=== PATIENT | female | born 1970 | race Caucasian/White ===

== ENCOUNTER 2016-06-18 13:44 | Emergency (ER) | payer SELFPAY ==
[2016-06-18] MEDS ORDERED: TOPROL XL PO ONE (13:53)
[2016-06-18 13:54] VITALS: BMI 27.3
--- NOTE | 2016-06-18 13:56 | DR.GENAD ---
HPI - HPI Comment HPI Comment: PATIENT WITH HISTORY OF SVT ON TOPROL XL RAN OUT OF MED 2 DAYS AGO. TODAY, RAPID HEART RATED STARTED. EMS GAVE ADENOCIN TIMES 2. PATIENT IS BETTER . HR 120 CURRENTLY. - Complaint/Symptoms Chief Complaint Doctors Comments: RAPID HEART RATE. - Nurses notes reviewed Nurses Notes Review: Yes - Source History Provided: Patient, EMS - Mode of Arrival Mode of Arrival: Stretcher - Timing Came on: Suddenly - Duration Duration: Since Onset Duration: Minutes - Severity Severity: Moderate PMH - PMH Past Medical History: GERD Past Surgical History: Yes Surgical History: Bowel Resection, Cholecystectomy, Ortho Surgery - Family History Family Medical History: [place], Hypertension - Social History Do you use any recreational Drugs:: No ROS - Review of Systems Constitutional: No Symptoms Reported, Weakness, Fatigue Eyes: No Symptoms Reported. negative: Eye Pain, Discharge ENTM: No Symptoms Reported. negative: Ear Pain, Nose Discharge, Nose Congestion , Throat Pain Respiratoy: No Symptoms Reported. negative: Productive Cough, Non-Productive Cough, Short of Breath, Wheezing, Hemoptysis Cardiovascular: Palpitations Gastrointestinal/Abdominal: No Symptoms Reported Genitourinary: No Symptoms Reported Neurological: Dizziness Musculoskeletal: No Symptoms Reported Integumentary: No Symptoms Reported Hematologic/Lymphatic: No Symptoms Reported Endocrine: No Symptoms Reported All Other Systems: Reviewed and Negative PE - Vital Signs Vitals: Temperature 98 F Pulse Rate [Right Brachial] 100 Pulse Rate 118 Respiratory Rate 16 Blood Pressure [Right Arm] 160/79 Blood Pressure [Left Arm] 134/75 Blood Pressure 163/84 O2 Sat by Pulse Oximetry 97 - General Limitations: No Limitations General Appearance: In No Apparent Distress - Head Head Exam: Normal Inspection - Eyes Eye exam: Normal Appearance - ENT ENT Exam: Normal External Ear Exam External Ear Exam: Normal External Inspection TM/Canal Exam: Bilateral Normal Nose Exam: Normal Nose Exam Mouth Exam: Normal Inspection Throat Exam: Normal Inspection - Neck Neck Exam: Trachea Midline - Chest Chest Inspection: Symmetric Chest Wall Rise - Respiratory Respiratory Exam: Normal Lung Sounds Bilat Respiratory Exam: Bilateral Clear to Auscultation - Cardiovascular Cardiovascular Exam: Normal Rhythm, Tachycardia, Normal Heart Sounds - Abdominal Exam Abdominal Exam: Normal Bowel Sounds, Soft. negative: Tenderness - Extremities Extremities Exam: Normal Inspection - Back Back Exam: Normal Inspection - Neurologic Neurological Exam: Alert, Oriented X3 - Psychiatric Psychiatric Exam: Anxious - Skin Skin Exam: Normal Color MDM - Differential Diagnosis Differential Diagnosis: SVT, VT, Course - Treatment Treatment: SEE ORDERS - Education/Counseling Education/Counseling: Patient, Education Educated On: Treatment, Diagnosis, Needs for Follow Up ROR - Labs Reviewed Laboratory Results Reviewed?: Yes Result Diagrams: 06/18/16 14:16 06/18/16 14:16 Laboratory: WBC 7.1 X10^3/uL (3.6-10.0) 06/18/16 14:16 RBC 4.18 X10^6/uL (3.5-5.4) 06/18/16 14:16 Hgb 10.6 g/dL (12.0-16.0) L 06/18/16 14:16 Hct 33.7 % (36.0-47.0) L 06/18/16 14:16 MCV 80.6 fL (80.0-100.0) 06/18/16 14:16 MCH 25.3 pg (27.0-34.0) L 06/18/16 14:16 MCHC 31.4 g/dL (33.0-35.0) L 06/18/16 14:16 RDW 19.2 % (11.6-16.5) H 06/18/16 14:16 Plt Count 271 X10^3/uL (150.0-450.0) 06/18/16 14:16 Plt Count Comment Adequate (ADEQUATE) 06/18/16 14:16 MPV 8.1 fL (7.4-11.0) 06/18/16 14:16 Neut % 62.2 % (42.0-75.0) 06/18/16 14:16 Lymph % 26.9 % (21.0-51.0) 06/18/16 14:16 [place] % 9.2 % (0.0-13.0) 06/18/16 14:16 Eos % 0.6 % (0.9-2.9) L 06/18/16 14:16 Baso % 1.1 % (0.2-1.0) H 06/18/16 14:16 Neut # 4.4 x10^3/uL (2.2-4.8) 06/18/16 14:16 Lymph # 1.9 X10^3/uL (1.3-2.9) 06/18/16 14:16 [place] # 0.7 x10^3/uL (0.3-0.8) 06/18/16 14:16 Eos # 0.0 x10^3/uL (0.0-0.2) 06/18/16 14:16 Baso # 0.1 X10^3/uL (0.0-0.1) 06/18/16 14:16 Absolute Nucleated RBC 0.0 /100WBC 06/18/16 14:16 Plt Morphology Comment Normal (NORMAL) 06/18/16 14:16 RBC Morphology Abnormal (NORMAL) A 06/18/16 14:16 Hypochromasia Slight A 06/18/16 14:16 Ovalocytes Present 06/18/16 14:16 Sodium 143 mmol/L (136-145) 06/18/16 14:16 Corrected Sodium TNP 06/18/16 14:16 Potassium 3.6 mmol/L (3.5-5.1) 06/18/16 14:16 Chloride 110 mmol/L (98-107) H 06/18/16 14:16 Carbon Dioxide 20.4 mmol/L (21-32) L 06/18/16 14:16 BUN 10 mg/dL (7-18) 06/18/16 14:16 Creatinine 1.08 mg/dL (0.55-1.02) H 06/18/16 14:16 Est GFR (MDRD) Af Amer > 60 (>60) 06/18/16 14:16 Est GFR (MDRD) Non-Af 59 (>60) 06/18/16 14:16 Glucose 106 mg/dL (65-99) H 06/18/16 14:16 Calcium 8.3 mg/dL (8.5-10.1) L 06/18/16 14:16 Corrected Calcium TNP 06/18/16 14:16 Total Bilirubin 0.10 mg/dL (0.2-1.0) L 06/18/16 14:16 AST 32 Units/L (15-37) 06/18/16 14:16 ALT 32 Units/L (12-78) 06/18/16 14:16 Alkaline Phosphatase 92 Units/L (46-116) 06/18/16 14:16 Creatine Kinase 206 Units/L (26-192) H 06/18/16 14:16 CK-MB (CK-2) 2.2 ng/mL (0-4.0) 06/18/16 14:16 CK/CKMB % Calc 1.1 % (<4) 06/18/16 14:16 Troponin I < 0.02 ng/mL (0-1.5) 06/18/16 14:16 Total Protein 7.3 g/dL (6.4-8.2) 06/18/16 14:16 Albumin 3.7 g/dL (3.4-5.0) 06/18/16 14:16 Globulin 3.6 g/dL (2.5-4.5) 06/18/16 14:16 Albumin/Globulin Ratio 1.0 Ratio (1.1-2.1) L 06/18/16 14:16 - EKG Rhythm: ST (EKG NOTED) - Diagnosis Discharge Problem: SVT (supraventricular tachycardia) - Discharge Plan Disposition: 01 HOME, SELF-CARE Condition: Stable Prescriptions: Metoprolol Succinate Ext Rel [Toprol Xl] 50 mg PO DAILY #30 tabsr - Follow ups/Referrals Follow ups/Referrals: [facility],None [Primary Care Provider] - 3 days DONNA PONCE [STAFF PHYSICIAN] - 3 days - Instructions Instructions: Paroxysmal Supraventricular Tachycardia Additional Instructions: RETURN TO ED IF WORSE.
[2016-06-18] MEDS ORDERED: TOPROL XL PO SCH (14:00)
[2016-06-18 14:24] VITALS: BP 160/79
[2016-06-18 14:25] LABS: BASOPHILS # (AUTO) 0.1 X10^3/uL (0.0-0.1); BASOPHILS % (AUTO) 1.1 % (0.2-1.0); EOSINOPHILS % (AUTO) 0.6 % (0.9-2.9); HEMATOCRIT 33.7 % (36.0-47.0); HEMOGLOBIN 10.6 g/dL (12.0-16.0); LYMPHOCYTES # (AUTO) 1.9 X10^3/uL (1.3-2.9); LYMPHOCYTES % (AUTO) 26.9 % (21.0-51.0); MEAN CORPUSCULAR HEMOGLOBIN 25.3 pg (27.0-34.0); MEAN CORPUSCULAR HGB CONC 31.4 g/dL (33.0-35.0); MEAN CORPUSCULAR VOLUME 80.6 fL (80.0-100.0); MEAN PLATELET VOLUME 8.1 fL (7.4-11.0); MONOCYTES # (AUTO) 0.7 x10^3/uL (0.3-0.8); MONOCYTES % (AUTO) 9.2 % (0.0-13.0); NEUTROPHILS # (AUTO) 4.4 x10^3/uL (2.2-4.8); NEUTROPHILS % (AUTO) 62.2 % (42.0-75.0); PLATELET COUNT 271 X10^3/uL (150.0-450.0); RED BLOOD COUNT 4.18 X10^6/uL (3.5-5.4); RED CELL DISTRIBUTION WIDTH 19.2 % (11.6-16.5); WHITE BLOOD COUNT 7.1 X10^3/uL (3.6-10.0)
[2016-06-18 14:39] LABS: BLOOD UREA NITROGEN 10 mg/dL (7-18); CALCIUM 8.3 mg/dL (8.5-10.1); CARBON DIOXIDE 20.4 mmol/L (21-32); CHLORIDE 110 mmol/L (98-107); CREATININE 1.08 mg/dL (0.55-1.02); GLUCOSE 106 mg/dL (65-99); SODIUM 143 mmol/L (136-145); TROPONIN I < 0.02 ng/mL (0-1.5); eGFR BLACK RACES > 60 (>60); eGFR NON BLACK RACES 59 (>60)
[2016-06-18 14:40] LABS: HYPOCHROMASIA SLIGHT; PLATELET MORPHOLOGY COMMENT NORMAL (NORMAL)
[2016-06-18 14:41] LABS: OVALOCYTES PRESENT
[2016-06-18 14:47] LABS: ALANINE AMINOTRANSFERASE 32 Units/L (12-78); ALBUMIN 3.7 g/dL (3.4-5.0); ALKALINE PHOSPHATASE 92 Units/L (46-116); ASPARTATE AMINO TRANSFERASE 32 Units/L (15-37); CKMB % 1.1 % (<4); CREATINE KINASE 206 Units/L (26-192); CREATINE KINASE MB 2.2 ng/mL (0-4.0); TOTAL PROTEIN 7.3 g/dL (6.4-8.2)
== END 2016-06-18 15:08 | disposition home or self-care (01) ==
LOC: ER 13:45
DX: I47.1 Supraventricular tachycardia (principal)
CPT/HCPCS: 36415; 80053; 82550; 82553; 84484; 85025; 93005; 93010; 96365; 99283; A4222

== ENCOUNTER → 2016-09-04 | Outpatient (CLI) | payer OTHER ==
--- NOTE | 2016-09-04 10:36 | RAD ---
HISTORY: Staph infection of the heel Study: Three views left Comparison: November 27, 2014 Findings: there is an old fracture of the posterior calcaneus with callus formation. There is no lytic bone er osion or destruction demonstrated. There is no acute fracture. There are minimal osteophytes about t he 1st metatarsal phalangeal joint.No acute cortical disruption or dislocation can be identified. N o significant soft tissue swelling or injury can be seen. IMPRESSION: 1. Old posterior calcaneal fracture, no evidence for acute disease or osteomyelitis. Reported By:
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
== END | disposition home or self-care (01) ==
LOC: RAD 09:53
PROVIDERS: ATTEND Internal Medicine
DX: Z02.71 Encounter for disability determination (principal); Z98.890 Other specified postprocedural states
CPT/HCPCS: 73630

== ENCOUNTER 2023-11-29 08:23 | Observation (INO) ==
--- NOTE | 2023-11-29 08:48 | DR.GENAD ---
HPI Time Seen Time Seen by Provider: 11/29/23 08:36 HPI Comment HPI Comment: Abdominal pian .According to pt she has experienced pain in her belly starting 2 days ago gradual in onset and has slowly worsened to being constant .Pain is located in the upper belly moderate intensity no radiation .Associated with nausea vomiting but no changes in bowel habits .Last bowel movement yesterday.Has no diarrhea.Pain doesnot improve with bowel movement .Pt has not eaten anything unusual or different .Has not changed her medication except does take tylenol with codeine at least 4 x per day .hx of bariatric procedure .Did take GI cocktail did not help with pain COVID-19 Coronavirus risk:travel/contact w/high risk person: No Has patient experienced Coronavirus symptoms: No Nurses notes reviewed Nurses Notes Review: Yes Source History Provided: Patient Mode of Arrival Mode of Arrival: Ambulatory PM PM Past Medical History: GERD and SVT Past Surgical History: Yes Surgical History: Bowel Resection, Cholecystectomy and Ortho Surgery Family History Family Medical History: [place] and Hypertension Social History Do you use any recreational Drugs:: No Travel Risk Coronavirus risk:travel/contact w/high risk person: No Has patient experienced Coronavirus symptoms: No ROS Review of Systems Constitutional: Malaise and Fatigue Eyes: No Symptoms Reported ENTM: No Symptoms Reported Respiratoy: No Symptoms Reported Cardiovascular: No Symptoms Reported Gastrointestinal/Abdominal: See HPI Genitourinary: No Symptoms Reported Neurological: No Symptoms Reported Musculoskeletal: Other (chronic back pain) Integumentary: No Symptoms Reported Hematologic/Lymphatic: No Symptoms Reported PE Vital Signs Vitals: Vital Signs Temperature 97.7 F Pulse Rate 98 Respiratory Rate 18 Respiratory Rate 18 Blood Pressure 175/90 O2 Sat by Pulse Oximetry 99 General Limitations: No Limitations General Appearance: Alert and In No Apparent Distress Head Head Exam: Normal Inspection, Atraumatic and Normocephalic Eyes Eye exam: Normal Appearance and PERRL ENT ENT Exam: Mucous Membranes Dry and Other (pos pallor ) External Ear Exam: Normal External Inspection TM/Canal Exam: Bilateral: Normal Neck Neck Exam: Normal Inspection Chest Chest Inspection: Normal Inspection and Symmetric Chest Wall Rise Respiratory Respiratory Exam: Normal Lung Sounds Bilat Respiratory Exam: Bilateral: Clear to Auscultation Abdominal Exam Abdominal Exam: Soft, Tenderness and Incision Abdominal Tenderness: Diffuse and Moderate Neurologic Neurological Exam: Alert Skin Skin Exam: Normal Color MDM Differential Diagnosis Differential Diagnosis: abdominal pain COURSE Treatment Treatment: cbc,cmp,lipase,IV fluids ,zofran CT abdomen and pelvis with contrast ROR Labs Reviewed Laboratory Results Reviewed?: Yes 11/29/23 08:58 11/29/23 08:58 Laboratory: WBC 5.3 X10^3/uL (3.6-10.0) 11/29/23 08:58 RBC 4.22 X10^6/uL (3.5-5.4) 11/29/23 08:58 Hgb 11.4 g/dL (12.0-16.0) L 11/29/23 08:58 Hct 35.8 % (36.0-47.0) L 11/29/23 08:58 MCV 84.7 fL (80.0-100.0) 11/29/23 08:58 MCH 26.9 pg (27.0-34.0) L 11/29/23 08:58 MCHC 31.8 g/dL (33.0-35.0) L 11/29/23 08:58 RDW 21.4 % (11.6-16.5) H 11/29/23 08:58 Plt Count 237 X10^3/uL (150.0-450.0) 11/29/23 08:58 Plt Count Comment Adequate (ADEQUATE) 11/29/23 08:58 MPV 7.8 fL (7.4-11.0) 11/29/23 08:58 Neut % (Auto) 76.0 % (42.0-75.0) H 11/29/23 08:58 Lymph % (Auto) 16.1 % (21.0-51.0) L 11/29/23 08:58 [place] % (Auto) 6.6 % (0.0-13.0) 11/29/23 08:58 Eos % (Auto) 0.7 % (0.9-2.9) L 11/29/23 08:58 Baso % (Auto) 0.6 % (0.2-1.0) 11/29/23 08:58 Neut # (Auto) 4.0 x10^3/uL (2.2-4.8) 11/29/23 08:58 Lymph # (Auto) 0.8 X10^3/uL (1.3-2.9) L 11/29/23 08:58 [place] # (Auto) 0.3 x10^3/uL (0.3-0.8) 11/29/23 08:58 Eos # (Auto) 0.0 x10^3/uL (0.0-0.2) 11/29/23 08:58 Baso # (Auto) 0.0 X10^3/uL (0.0-0.1) 11/29/23 08:58 Absolute Nucleated RBC 0.0 /100WBC 11/29/23 08:58 Plt Morphology Comment Normal (NORMAL) 11/29/23 08:58 RBC Morphology Abnormal (NORMAL) A 11/29/23 08:58 Hypochromasia 1+ A 11/29/23 08:58 Anisocytosis 1+ A 11/29/23 08:58 Sodium 137 mmol/L (136-145) 11/29/23 08:58 Corrected Sodium TNP 11/29/23 08:58 Potassium 3.9 mmol/L (3.5-5.1) 11/29/23 08:58 Chloride 100 mmol/L (98-107) 11/29/23 08:58 Carbon Dioxide 29.3 mmol/L (21-32) 11/29/23 08:58 BUN 18 mg/dL (7-18) 11/29/23 08:58 Creatinine 0.63 mg/dL (0.55-1.02) 11/29/23 08:58 Est GFR (MDRD) Af Amer > 60 (>60) 11/29/23 08:58 Est GFR (MDRD) Non-Af > 60 (>60) 11/29/23 08:58 Glucose 107 mg/dL (65-99) H 11/29/23 08:58 Calcium 9.5 mg/dL (8.5-10.1) 11/29/23 08:58 Corrected Calcium TNP 11/29/23 08:58 Total Bilirubin 0.30 mg/dL (0.2-1.0) 11/29/23 08:58 AST 27 Units/L (15-37) 11/29/23 08:58 ALT 28 Units/L (12-78) 11/29/23 08:58 Alkaline Phosphatase 121 Units/L (46-116) H 11/29/23 08:58 Total Protein 8.0 g/dL (6.4-8.2) 11/29/23 08:58 Albumin 4.2 g/dL (3.4-5.0) 11/29/23 08:58 Globulin 3.8 g/dL (2.5-4.5) 11/29/23 08:58 Albumin/Globulin Ratio 1.1 Ratio (1.1-2.1) 11/29/23 08:58 Lipase 121 Units/L (16-77) H 11/29/23 08:58 SARS-CoV-2 (PCR) Negative (NEGATIVE) 11/29/23 08:39 Influenza Type A (PCR) Negative (NEGATIVE) 11/29/23 08:39 Influenza Type B (PCR) Negative (NEGATIVE) 11/29/23 08:39 RSV (PCR) Negative (NEGATIVE) 11/29/23 08:39 S. pyogenes (TEM-PCR) Not detected (NOT DETECT) 11/29/23 08:39 Other Results Comments: elevated lipase and ct showing small bowel obstruction .Spoke with Dr Maldonado surgery agreed to have patient admitted for management Opioid Opioid Risk Tool Age (Priyank box if 16-45): No History of Preadolescent Sexual Abuse: No Total: 0 Total Score Risk Category: Low Risk Copyright: Michael LYLE predicting aberrant behaviors Discharge Plan Diagnosis Discharge Problem: Small bowel obstruction, Acute pancreatitis Discharge Plan Patient Disposition: ADMITTED INPATIENT Condition: Stable Orders to Discharge Patient Discharge Orders: Transfer (Routine); Ordered 11/29/23 Ordered By: Cody De La Rosa
[2023-11-29 09:05] LABS: BASOPHILS % (AUTO) 0.6 % (0.2-1.0); EOSINOPHILS % (AUTO) 0.7 % (0.9-2.9); HEMATOCRIT 35.8 % (36.0-47.0); HEMOGLOBIN 11.4 g/dL (12.0-16.0); LYMPHOCYTES # (AUTO) 0.8 X10^3/uL (1.3-2.9); LYMPHOCYTES % (AUTO) 16.1 % (21.0-51.0); MEAN CORPUSCULAR HEMOGLOBIN 26.9 pg (27.0-34.0); MEAN CORPUSCULAR HGB CONC 31.8 g/dL (33.0-35.0); MEAN CORPUSCULAR VOLUME 84.7 fL (80.0-100.0); MEAN PLATELET VOLUME 7.8 fL (7.4-11.0); MONOCYTES # (AUTO) 0.3 x10^3/uL (0.3-0.8); MONOCYTES % (AUTO) 6.6 % (0.0-13.0); PLATELET COUNT 237 X10^3/uL (150.0-450.0); RED BLOOD COUNT 4.22 X10^6/uL (3.5-5.4); RED CELL DISTRIBUTION WIDTH 21.4 % (11.6-16.5); WHITE BLOOD COUNT 5.3 X10^3/uL (3.6-10.0)
[2023-11-29] MEDS: NS 1,000 ML IV 1,000 ML IV ONE (09:06)
[2023-11-29] MEDS: ZOFRAN INJ 4 MG VIAL IVP ONE ×2 (09:06→12:03)
[2023-11-29 09:16] LABS: ALANINE AMINOTRANSFERASE 28 Units/L (12-78); ALBUMIN 4.2 g/dL (3.4-5.0); ALKALINE PHOSPHATASE 121 Units/L (46-116); ASPARTATE AMINO TRANSFERASE 27 Units/L (15-37); BLOOD UREA NITROGEN 18 mg/dL (7-18); CALCIUM 9.5 mg/dL (8.5-10.1); CARBON DIOXIDE 29.3 mmol/L (21-32); CHLORIDE 100 mmol/L (98-107); CREATININE 0.63 mg/dL (0.55-1.02); GLUCOSE 107 mg/dL (65-99); LIPASE 121 Units/L (16-77); POTASSIUM 3.9 mmol/L (3.5-5.1); SODIUM 137 mmol/L (136-145); eGFR NON BLACK RACES > 60 (>60)
[2023-11-29 09:24] LABS: ANISOCYTOSIS 1+; HYPOCHROMASIA 1+; PLATELET MORPHOLOGY COMMENT NORMAL (NORMAL)
[2023-11-29] MEDS: MORPHINE SULFATE INJ 2 MG INJ IVP ONE (09:28)
--- NOTE | 2023-11-29 11:30 | CT ---
EXAM:ABDCMEN/PELVIS WITH CONHISTORY:vomiting, abdomen pain ( LLUQ) ; BOWEL RESECTION / CHOLECYSTECTOMYCOMPARISON:No relevant prior studies were available for comparison at the time of interpretation..TECHNIQUE:CT images were obtained. Multiplanar reconstructions were created on a separate workstation and used during interpretation. All CT scans at this facility is dose modulation, iterative reconstruction, and/or weight-based dosing as appropriate to reduce radiation to levels as low as reasonably achievable (ALARA). Postprocessing details, radiation dose, and contrast dose (if applicable) are recorded in the patient's medical record.FINDINGS:Lower chest: Lung bases are clear. No acute cardiac abnormality.ABDOMEN:Liver: Hepatomegaly. No suspicious masses. Intrahepatic biliary dilation. CBD dilation..Gallbladder: Status post cholecystectomy.Pancreas: No mass or ductal dilation.Spleen: Normal morphology.Adrenal glands: No suspicious mass. No hemorrhage.Kidneys: Normal size and morphology. No hydronephrosis. No obstructing calculus. No solid mass.Upper GI: Hiatus hernia. Evidence of GE junction surgery.Small bowel: Dilated fluid-filled small bowel with left mid abdominal transition point near the anastomosis. See coronal image 15 or axial image 45Large bowel: Normal caliber and wall thicknessAppendix: No evidence of acute appendicitisPeritoneum: No free air or significant free fluidLymph nodes: No enlarged abdominal lymph nodes.Vasculature: No significant vascular abnormality.PELVIS:Bladder: Bladder is intact and unremarkable.Reproductive System: No acute reproductive organ abnormality.EXTRAPERITONEAL TISSUES:Abdominal wall: No acute abnormalityMusculoskeletal: No acute osseous abnormality. No destructive bony lesion.Other soft tissues: UnremarkableIMPRESSION:1. Small-bowel obstruction with transition point near the anastomosisTHIS IS AN ELECTRONICALLY VERIFIED FINAL REPORT11/29/2023 11:27 AM - Electronically signed by Zoran Valenzuela MD
[2023-11-29] MEDS: DILAUDID INJ IVP ONE (12:03)
[2023-11-29 12:19] LABS: TSH (3RD GENERATION) 0.23 uIU/mL (0.358-3.74)
[2023-11-29] MEDS ORDERED: MORPHINE SULFATE INJ 4 MG IVP PRN (13:10)
[2023-11-29 13:25] VITALS: BMI 21.7
[2023-11-29] MEDS: DILAUDID INJ IVP PRN (16:46)
[2023-11-29] MEDS: PROTONIX INJ 40 MG VIAL IVP SCH (20:34)
[2023-11-29] MEDS: D5 1/2 NS 1,000 ML 1,000 ML IV SCH (20:34)
[2023-11-30] MEDS: ZOFRAN INJ 4 MG VIAL IVP PRN (01:27)
[2023-11-30] MEDS: ZOFRAN INJ 4 MG VIAL ONE ×2 (04:18→04:19)
[2023-11-30] MEDS: NS 1,000 ML IV 1,000 ML ONE (04:18)
[2023-11-30] MEDS: MORPHINE SULFATE INJ 2 MG INJ ONE (04:20)
[2023-11-30] MEDS: DILAUDID INJ ONE (04:20)
[2023-11-30 05:27] LABS: BASOPHILS % (AUTO) 0.8 % (0.2-1.0); EOSINOPHILS # (AUTO) 0.2 x10^3/uL (0.0-0.2); EOSINOPHILS % (AUTO) 4.7 % (0.9-2.9); HEMATOCRIT 31.3 % (36.0-47.0); HEMOGLOBIN 9.9 g/dL (12.0-16.0); LYMPHOCYTES # (AUTO) 1.7 X10^3/uL (1.3-2.9); LYMPHOCYTES % (AUTO) 49.3 % (21.0-51.0); MEAN CORPUSCULAR HEMOGLOBIN 27.1 pg (27.0-34.0); MEAN CORPUSCULAR HGB CONC 31.6 g/dL (33.0-35.0); MEAN CORPUSCULAR VOLUME 85.7 fL (80.0-100.0); MEAN PLATELET VOLUME 7.9 fL (7.4-11.0); MONOCYTES # (AUTO) 0.2 x10^3/uL (0.3-0.8); MONOCYTES % (AUTO) 7.3 % (0.0-13.0); NEUTROPHILS # (AUTO) 1.3 x10^3/uL (2.2-4.8); NEUTROPHILS % (AUTO) 37.9 % (42.0-75.0); PLATELET COUNT 198 X10^3/uL (150.0-450.0); RED BLOOD COUNT 3.66 X10^6/uL (3.5-5.4); RED CELL DISTRIBUTION WIDTH 21.4 % (11.6-16.5); WHITE BLOOD COUNT 3.4 X10^3/uL (3.6-10.0)
--- NOTE | 2023-11-30 05:38 | RAD ---
EXAM:KUBHISTORY:partial small bowel obstruction; UnavailableCOMPARISON:None.FINDINGS:Eval uation of the abdomen demonstrates a normal bowel gas pattern. There is a moderate amount of fecal material throughout the colon. Surgical clips in the right upper quadrant. No pathological soft tissue mass or calcification can be observed. The bony structures are grossly intact. The lung bases are clear.IMPRESSION:No evidence for acute abdominal pathology identified.THIS IS AN ELECTRONICALLY VERIFIED FINAL REPORT11/30/2023 5:35 AM - Electronically signed by Jareth Worthington MD
[2023-11-30 05:47] LABS: ALANINE AMINOTRANSFERASE 25 Units/L (12-78); ALBUMIN 3.2 g/dL (3.4-5.0); ALKALINE PHOSPHATASE 96 Units/L (46-116); AMYLASE 38 Units/L (25-115); ASPARTATE AMINO TRANSFERASE 27 Units/L (15-37); BLOOD UREA NITROGEN 7 mg/dL (7-18); CALCIUM 8.5 mg/dL (8.5-10.1); CARBON DIOXIDE 27.9 mmol/L (21-32); CHLORIDE 107 mmol/L (98-107); COR CA(FOR HYPOALB) 9.1 mg/dL (8.5-10.1); CREATININE 0.64 mg/dL (0.55-1.02); GLUCOSE 89 mg/dL (65-99); LIPASE 35 Units/L (16-77); POTASSIUM 3.5 mmol/L (3.5-5.1); SODIUM 140 mmol/L (136-145); TOTAL PROTEIN 6.3 g/dL (6.4-8.2); eGFR NON BLACK RACES > 60 (>60)
[2023-11-30] MEDS ORDERED: CONSULT PHARMACY - POTASSIUM & MAGNESIUM XX SCH (06:00)
[2023-11-30 06:28] LABS: ANISOCYTOSIS 1+; PLATELET MORPHOLOGY COMMENT NORMAL (NORMAL)
--- NOTE | 2023-11-30 09:03 | DR.PROGNOT ---
HOSPITAL PROGRESS NOTE Progress Note for Day of: Progress Note Date: 11/30/23 Chief Complaint Chief Complaint: still c/o LUQ and upper abdominal pain , no vomiting today . CBS is normal . Hgb 9.9 . TSH 2.3. KUB : improving SBO . abdomen is full with moderate upper abdominal tenderness . BS+ Past Medical Family Social History Allergies: Allergies No Known Drug Allergies Allergy (Verified 11/12/20 14:14) Review Of Systems ROS: No change since H&P Vital Signs Vital Signs: Vital Signs Temperature 98.2 F Temperature 97.9 F Pulse Rate [Apical] 72 Pulse Rate [Apical] 76 Respiratory Rate 20 Respiratory Rate 20 Respiratory Rate 18 Respiratory Rate 19 Respiratory Rate 19 Respiratory Rate 19 Blood Pressure [Left Arm] 122/65 Blood Pressure [Left Arm] 120/80 O2 Sat by Pulse Oximetry 100 O2 Sat by Pulse Oximetry 96 Physical Exam Oriented: Normal Eyes: Normal Ear: Normal Nose: Normal Throat: Normal Respiratory: Normal Cardiovascular: Normal GI: Tenderness: LUQ and Epigastric Speech Pattern: Clear Laboratory and Diagnostics 11/30/23 05:15 11/30/23 05:15 Labs: Laboratory WBC 3.4 X10^3/uL (3.6-10.0) L 11/30/23 05:15 RBC 3.66 X10^6/uL (3.5-5.4) 11/30/23 05:15 Hgb 9.9 g/dL (12.0-16.0) L 11/30/23 05:15 Hct 31.3 % (36.0-47.0) L 11/30/23 05:15 MCV 85.7 fL (80.0-100.0) 11/30/23 05:15 MCH 27.1 pg (27.0-34.0) 11/30/23 05:15 MCHC 31.6 g/dL (33.0-35.0) L 11/30/23 05:15 RDW 21.4 % (11.6-16.5) H 11/30/23 05:15 Plt Count 198 X10^3/uL (150.0-450.0) 11/30/23 05:15 Plt Count Comment Adequate (ADEQUATE) 11/30/23 05:15 MPV 7.9 fL (7.4-11.0) 11/30/23 05:15 Neut % (Auto) 37.9 % (42.0-75.0) L 11/30/23 05:15 Lymph % (Auto) 49.3 % (21.0-51.0) 11/30/23 05:15 [place] % (Auto) 7.3 % (0.0-13.0) 11/30/23 05:15 Eos % (Auto) 4.7 % (0.9-2.9) H 11/30/23 05:15 Baso % (Auto) 0.8 % (0.2-1.0) 11/30/23 05:15 Neut # (Auto) 1.3 x10^3/uL (2.2-4.8) L 11/30/23 05:15 Lymph # (Auto) 1.7 X10^3/uL (1.3-2.9) 11/30/23 05:15 [place] # (Auto) 0.2 x10^3/uL (0.3-0.8) L 11/30/23 05:15 Eos # (Auto) 0.2 x10^3/uL (0.0-0.2) 11/30/23 05:15 Baso # (Auto) 0.0 X10^3/uL (0.0-0.1) 11/30/23 05:15 Absolute Nucleated RBC 0.0 /100WBC 11/30/23 05:15 Plt Morphology Comment Normal (NORMAL) 11/30/23 05:15 RBC Morphology Abnormal (NORMAL) A 11/30/23 05:15 Hypochromasia 1+ A 11/29/23 08:58 Anisocytosis 1+ A 11/30/23 05:15 Sodium 140 mmol/L (136-145) 11/30/23 05:15 Corrected Sodium TNP 11/30/23 05:15 Potassium 3.5 mmol/L (3.5-5.1) 11/30/23 05:15 Chloride 107 mmol/L (98-107) 11/30/23 05:15 Carbon Dioxide 27.9 mmol/L (21-32) 11/30/23 05:15 BUN 7 mg/dL (7-18) 11/30/23 05:15 Creatinine 0.64 mg/dL (0.55-1.02) 11/30/23 05:15 Est GFR (MDRD) Af Amer > 60 (>60) 11/30/23 05:15 Est GFR (MDRD) Non-Af > 60 (>60) 11/30/23 05:15 Glucose 89 mg/dL (65-99) 11/30/23 05:15 Calcium 8.5 mg/dL (8.5-10.1) 11/30/23 05:15 Corrected Calcium 9.1 mg/dL (8.5-10.1) 11/30/23 05:15 Magnesium 1.8 mg/dL (2.0-2.9) L 11/30/23 05:15 Total Bilirubin 0.30 mg/dL (0.2-1.0) 11/30/23 05:15 AST 27 Units/L (15-37) 11/30/23 05:15 ALT 25 Units/L (12-78) 11/30/23 05:15 Alkaline Phosphatase 96 Units/L (46-116) 11/30/23 05:15 Total Protein 6.3 g/dL (6.4-8.2) L 11/30/23 05:15 Albumin 3.2 g/dL (3.4-5.0) L 11/30/23 05:15 Globulin 3.1 g/dL (2.5-4.5) 11/30/23 05:15 Albumin/Globulin Ratio 1.0 Ratio (1.1-2.1) L 11/30/23 05:15 Amylase 38 Units/L (25-115) 11/30/23 05:15 Lipase 35 Units/L (16-77) 11/30/23 05:15 Thyroxine (T4) 10.0 ug/dL (4.7-13.3) 11/29/23 08:58 TSH 3rd Generation 0.230 uIU/mL (0.358-3.74) L 11/29/23 08:58 SARS-CoV-2 (PCR) Negative (NEGATIVE) 11/29/23 08:39 Influenza Type A (PCR) Negative (NEGATIVE) 11/29/23 08:39 Influenza Type B (PCR) Negative (NEGATIVE) 11/29/23 08:39 RSV (PCR) Negative (NEGATIVE) 11/29/23 08:39 S. pyogenes (TEM-PCR) Not detected (NOT DETECT) 11/29/23 08:39 Assessment and Plan 1: subsiding SBO and pancreatitis . full liquid , KUB in am . 2: chronic anemia . 3: chronic back pain . 4: hypothyroidism , needs further evaluation Problem Patient Problems: Patient Problems (Updated 11/29/23 @ 12:09 by Cody De La Rosa) Small bowel obstruction (Acute) K56.609 Acute pancreatitis (Acute) K85.90
[2023-11-30] MEDS: LOVENOX INJ 40 MG SYR SC SCH (09:40)
[2023-11-30] MEDS: POTASSIUM CHLORIDE INJ 40 MEQ VIAL 40 MEQ, MAGNESIUM SULFATE 50% INJ VIAL 4 G in NS 500... IV ONE (09:40)
[2023-11-30] MEDS ORDERED: MAG-OX TAB PO SCH (10:00)
[2023-11-30] MEDS ORDERED: K-DUR TAB 20 MEQ PO SCH (10:00)
[2023-12-01 05:08] LABS: EOSINOPHILS # (AUTO) 0.1 x10^3/uL (0.0-0.2); EOSINOPHILS % (AUTO) 4.5 % (0.9-2.9); HEMATOCRIT 29.5 % (36.0-47.0); HEMOGLOBIN 9.5 g/dL (12.0-16.0); LYMPHOCYTES # (AUTO) 1.4 X10^3/uL (1.3-2.9); LYMPHOCYTES % (AUTO) 44.3 % (21.0-51.0); MEAN CORPUSCULAR HEMOGLOBIN 27.4 pg (27.0-34.0); MEAN CORPUSCULAR HGB CONC 32.1 g/dL (33.0-35.0); MEAN CORPUSCULAR VOLUME 85.3 fL (80.0-100.0); MEAN PLATELET VOLUME 7.9 fL (7.4-11.0); MONOCYTES # (AUTO) 0.3 x10^3/uL (0.3-0.8); MONOCYTES % (AUTO) 8.1 % (0.0-13.0); NEUTROPHILS # (AUTO) 1.3 x10^3/uL (2.2-4.8); NEUTROPHILS % (AUTO) 42.1 % (42.0-75.0); PLATELET COUNT 189 X10^3/uL (150.0-450.0); RED BLOOD COUNT 3.46 X10^6/uL (3.5-5.4); RED CELL DISTRIBUTION WIDTH 21.1 % (11.6-16.5); WHITE BLOOD COUNT 3.2 X10^3/uL (3.6-10.0)
[2023-12-01 05:20] LABS: ALANINE AMINOTRANSFERASE 25 Units/L (12-78); ALBUMIN 3.1 g/dL (3.4-5.0); ALKALINE PHOSPHATASE 89 Units/L (46-116); ASPARTATE AMINO TRANSFERASE 25 Units/L (15-37); BLOOD UREA NITROGEN 6 mg/dL (7-18); CALCIUM 8.7 mg/dL (8.5-10.1); CARBON DIOXIDE 31.3 mmol/L (21-32); CHLORIDE 105 mmol/L (98-107); COR CA(FOR HYPOALB) 9.4 mg/dL (8.5-10.1); CREATININE 0.69 mg/dL (0.55-1.02); GLUCOSE 101 mg/dL (65-99); MAGNESIUM 1.8 mg/dL (2.0-2.9); SODIUM 140 mmol/L (136-145); TOTAL PROTEIN 6.2 g/dL (6.4-8.2); eGFR NON BLACK RACES > 60 (>60)
[2023-12-01 05:32] LABS: ANISOCYTOSIS 1+; PLATELET MORPHOLOGY COMMENT NORMAL (NORMAL); TARGET CELLS SLIGHT
--- NOTE | 2023-12-01 05:50 | RAD ---
EXAM:KUBHISTORY:possible bowel obstruction; UnavailableCOMPARISON:11/30/2023FINDINGS: moderate amount of fecal material throughout the colon. Surgical clips in the right upper quadrant. No pathological soft tissue mass or calcification can be observed. The bony structures are grossly intact.IMPRESSION:No evidence for acute abdominal pathology identified.THIS IS AN ELECTRONICALLY VERIFIED FINAL REPORT12/01/2023 5:47 AM - Electronically signed by Jareth Worthington MD
[2023-12-01] MEDS ORDERED: CONSULT PHARMACY - POTASSIUM & MAGNESIUM XX SCH (06:00)
[2023-12-01 08:17] VITALS: BP 147/72; PULSE 86; RESP 18; TEMP 98.6; O2SAT 98
[2023-12-01] MEDS: MAG-OX TAB PO SCH (08:35)
== END 2023-12-01 11:20 | disposition home or self-care (01) ==
LOC: ER 08:23 → MED/SURG 08:23
PROVIDERS: ADMIT Surgery; ATTEND Surgery
DX: K21.9 Gastro-esophageal reflux disease without esophagitis; M54.59 Other low back pain; K66.0 Peritoneal adhesions (postprocedural) (postinfection); K56.690 Other partial intestinal obstruction; Z98.84 Bariatric surgery status; K85.80 Other acute pancreatitis without necrosis or infection; Z65.8 Other specified problems related to psychosocial circumstances; E03.8 Other specified hypothyroidism; R11.2 Nausea with vomiting, unspecified; E83.42 Hypomagnesemia; Z20.822 Contact with and (suspected) exposure to COVID-19